=== PATIENT | female | born 1965 | race Caucasian/White ===

== ENCOUNTER → 2017-09-10 14:10 | Outpatient (POV) | payer OTHER, SELFPAY | PROVIDERS: Visit Provider Neurological Surgery | DX: Z00.00 Encounter for general adult medical examination without abnormal findings (principal) ==

== ENCOUNTER → 2017-10-07 08:45 | Outpatient (CLI) | payer OTHER, SELFPAY ==
--- NOTE | 2017-10-07 08:47 | MM_ITS ---
. MM Dig screening mamm BI w/CAD CAD Screening ORDERING PHYSICIAN : Luis Calvert MD PATIENT AGE: 52 years GENDER: Female COMPARISON: Previous mammograms: 14 August 2016, December 2014, February 2012 INDICATION: Routine screening. No hormones. No new complaints. Family history. Paternal aunt TECHNIQUE: Standard CC and MLO images were obtained. R2 CAD reviewed. FINDINGS: . No significant change since prior studies Moderately dense breast tissue which is localized to the central breast extending superiorly No new dominant mass nor suspicious calcification. RIGHT BREAST: LEFT BREAST:Stable small intramammary node lateral left breast IMPRESSION: ......... . Stable bilateral mammogram. No significant new findings. BI-RADS Category: 1 Negative RECOMMENDED FOLLOW-UP: 1YR - 1 YEAR FOLLOW-UP (A letter has been sent to the patient regarding results of the study.)
== END ==
PROVIDERS: PCP Internal Medicine Adolescent Medicine; Visit Provider Obstetrics & Gynecology
DX: Z12.31 Encounter for screening mammogram for malignant neoplasm of breast (principal)
CPT/HCPCS: 77067

== ENCOUNTER → 2017-10-16 07:29 | Outpatient (CLI) | payer OTHER, SELFPAY ==
[2017-10-16 08:16] LABS: Basophils # 0.1 K/mm3 (0-0.2); Basophils % 0.7 % (0.1-2.0); Eosinophils # 0.3 K/mm3 (0.0-0.4); Eosinophils % 3.8 % (0.1-12.0); Hematocrit 40.5 % (37.0-47.0); Hemoglobin 13.1 g/dL (12.2-16.2); Lymphocytes # 1.9 K/mm3 (0.7-4.5); Lymphocytes % 29.1 K/mm3 (10-50); Mean Corpuscular HGB Conc 32.2 g/dL (31.8-35.4); Mean Corpuscular Hemoglobin 29.7 pg (27.0-31.2); Mean Corpuscular Volume 92.1 fl (81-99); Mean Platelet Volume 7.6 fl (7.4-10.4); Monocytes # 0.4 K/mm3 (0.1-1.0); Neutrophils % 60.5 % (37.0-80.0); Platelet Count 295 K/mm3 (142-424); Red Cell Distribution Width 12.8 % (11.5-17.5); White Blood Count 6.7 K/mm3 (4.8-10.8)
[2017-10-18 02:33] LABS: EBV Ab VCA, IgG >600.0 U/mL (0.0-17.9); EBV Ab VCA, IgM <36.0 U/mL (0.0-35.9); Vitamin B12 248 pg/mL (232-1245); Vitamin D 25 Hydroxy 24.4 ng/mL (30.0-100.0)
[2017-10-22 08:02] LABS: CMV PCR Negative (Negative)
== END ==
PROVIDERS: Visit Provider Nurse Practitioner Family
DX: R53.83 Other fatigue (principal); R59.0 Localized enlarged lymph nodes
CPT/HCPCS: 36415; 82607; 82652; 85025; 86665; 87496

== ENCOUNTER → 2017-10-23 08:50 | Outpatient (CLI) | payer OTHER, SELFPAY ==
--- NOTE | 2017-10-23 08:53 | CT_ITS ---
CT soft tissue neck w con CLINICAL INDICATION: ITS.REASON: LYMPHADENOPATHY OF LT CERVICAL REGION ORDERING PHYSICIAN: Vick Fleming MD PATIENT AGE: 52 years COMPARISON: None TECHNIQUE:Axial, sagittal, and coronal images are generated and reviewed without contrast. All CT scans at the facility use one or more dose reduction, viz: automated exposure control; ma/kV adjustment per patient size (including targeted exams where dose is matched to indication; i.e. head); or iterative reconstruction technique. FINDINGS:There are scattered small nodes in the neck bilaterally. No dominant adenopathy is evident. There are small nodes in the left internal cervical chain measuring up to 1.4 x 1.1 cm. No mass abscess or abnormal collection. The nasopharynx, uvula, epiglottis, glottic region, and subglottic region have an unremarkable appearance. No thyroid mass. The submandibular glands and parotid glands are unremarkable. Lung apices are clear IMPRESSION: 1. Small shotty cervical lymph nodes 2. Otherwise negative CT neck with contrast
== END ==
PROVIDERS: PCP Internal Medicine Adolescent Medicine; Visit Provider Internal Medicine Adolescent Medicine
DX: R59.0 Localized enlarged lymph nodes (principal)
CPT/HCPCS: 70491; Q9967

== ENCOUNTER → 2017-12-29 11:24 | Outpatient (POV) | payer OTHER, SELFPAY | PROVIDERS: PCP Internal Medicine Adolescent Medicine; Visit Provider Otolaryngology | DX: Z00.00 Encounter for general adult medical examination without abnormal findings (principal) ==

== ENCOUNTER → 2018-01-05 15:04 | Outpatient (CLI) | payer OTHER, SELFPAY ==
--- NOTE | 2018-01-05 15:05 | CT_ITS ---
CT sinus wo con CLINICAL INDICATION: ITS.REASON: CHRONIC MAXILLARY SINUSITIS ORDERING PHYSICIAN: Alina Spangler MD PATIENT AGE: 52 years COMPARISON: None TECHNIQUE:Axial images obtained with sagittal and coronal reformats. All CT scans at the facility use one or more dose reduction, viz: automated exposure control, ma/kV adjustment per patient size (including targeted exams where dose is matched to indication, i.e. head), or iterative reconstruction technique. FINDINGS: There is mild mucosal thickening of the central left aspect of the sphenoid sinus and of the right maxillary sinus. No sinus air-fluid levels are evident. The left maxillary, ethmoid, and frontal sinuses are unremarkable. No mastoid effusion. The ostiomeatal complexes are patent. No significant nasal septal deviation. The orbits have an unremarkable appearance. The TMJs are unremarkable. IMPRESSION: 1. Minimal mucosal thickening of the right maxillary and left aspect of the sphenoid sinus suggesting mild inflammatory change. 2. No evidence of acute sinusitis.
== END ==
PROVIDERS: PCP Internal Medicine Adolescent Medicine; Visit Provider Otolaryngology
DX: J32.0 Chronic maxillary sinusitis (principal); R09.82 Postnasal drip
CPT/HCPCS: 70486

== ENCOUNTER → 2018-01-14 13:43 | Outpatient (POV) | payer OTHER, SELFPAY | PROVIDERS: Visit Provider Neurological Surgery | DX: Z00.00 Encounter for general adult medical examination without abnormal findings (principal) ==

== ENCOUNTER → 2018-01-26 11:25 | Outpatient (POV) | payer OTHER, SELFPAY | PROVIDERS: Visit Provider Otolaryngology | DX: Z00.00 Encounter for general adult medical examination without abnormal findings (principal) ==

== ENCOUNTER → 2018-02-02 12:58 | Outpatient (POV) | payer OTHER, SELFPAY | PROVIDERS: Visit Provider Dermatology | DX: Z00.00 Encounter for general adult medical examination without abnormal findings (principal) ==

== ENCOUNTER → 2018-03-11 14:44 | Outpatient (CLI) | payer OTHER, SELFPAY ==
--- NOTE | 2018-03-11 14:46 | US_ITS ---
MM Dig mamm DX unilat LT CAD, US breast LT complete INDICATION: Palpable left breast nodule ORDERING PHYSICIAN: Luis Calvert MD PATIENT AGE: 52 years COMPARISON: 10/07/2017, 08/13/2016 TECHNIQUE: Standard images performed along with spot compression views and left breast ultrasound FINDINGS: There is average fibroglandular tissue. A marker is placed along the 2:00 region of the left breast near the nipple to denote a palpable abnormality. No discrete mass is evident at the region of the placed marker. There is a benign-appearing nodule in the upper outer aspect of the left breast measuring 6 mm which is similar to the previous exams with a central lucency consistent with an intramammary lymph node. No malignant appearing mammographic mass or malignant microcalcification evident Left breast ultrasound: At 12:00 there is a 13 x 5 mm area of slight increased echogenicity somewhat irregular nature and could be due to a lipoma. Near 2:00 outer there is a 6 x 8 mm lobular area of decreased echogenicity. This is well-circumscribed and could correspond to the intramammary lymph node in a similar location on the mammogram. No ultrasound abnormality that corresponds to the palpable region. There is a small cyst at 3:00 at 5 mm. IMPRESSION: Probably benign findings. There is sonographic hypoechoic nodule at 2:00 measuring 7 mm which may correspond to the intramammary lymph node. No mammographic or sonographic abnormality to correspond to the palpable area of interest BI-RADS Category: 3 Probably Benign Finding Short Term Follow-up RECOMMENDED FOLLOW-UP: 6M - 6 MONTH FOLLOW-UP A negative mammogram and negative ultrasound does not exclude the possibility of malignancy. If there is indeed a palpable abnormality then, it should be managed on a clinical basis. Negative mammogram and negative ultrasound should not deter the possibility of biopsy in view of a palpable abnormality. (A letter has been sent to the patient regarding results of the study.)
== END ==
PROVIDERS: PCP Nurse Practitioner Family; Visit Provider Obstetrics & Gynecology
DX: N60.02 Solitary cyst of left breast (principal)
CPT/HCPCS: 76641; 77065

== ENCOUNTER → 2018-04-01 16:51 | Outpatient (CLI) | payer OTHER, SELFPAY | LOC: LAB 16:51 → LAB.DROPOF 04-02 10:01 | PROVIDERS: Visit Provider Urology | DX: N39.0 Urinary tract infection, site not specified (principal) | CPT/HCPCS: 87086; 87088; 87186 ==

== ENCOUNTER → 2018-10-13 13:39 | Outpatient (CLI) | payer OTHER, SELFPAY ==
--- NOTE | 2018-10-13 | US_ITS ---
MM Dig mamm BI DX w/CAD, US breast LT complete, US breast RT complete INDICATION: Follow-up abnormal mammogram, palpable abnormality at 12:00 near the nipple ORDERING PHYSICIAN: Luis Calvert MD PATIENT AGE: 53 years COMPARISON: 10/07/2017, 03/11/2018 TECHNIQUE: Bilateral diagnostic mammogram along with bilateral complete breast ultrasound FINDINGS: There is heterogeneous dense breast tissue bilaterally Right breast: No malignant appearing mass or malignant appearing microcalcifications. Vague nodular opacity is noted deep in the central aspect of the right breast which did appear to compress out on focal spot compression view. Right breast ultrasound: No abnormality noted in the palpable area of concern at 12:00. No cystic or solid lesions evident. Small nodes are present in the axilla. Left breast: Persistent nodular density in the outer aspect of left breast felt to represent a lymph node at 6 mm not significantly changed Left breast ultrasound: Lobulated 8 x 4 mm hypoechoic nodules present at 2:00 similar to the previous exam corresponding to the mammographic abnormality which has a benign appearance. No malignant appearing mass or malignant appearing microcalcifications. IMPRESSION: Benign findings. No convincing evidence of malignancy. Recommend resumes screening mammogram and left breast ultrasound February 2019 BI-RADS Category: 2 Benign Finding(s) RECOMMENDED FOLLOW-UP: 6M - 6 MONTH FOLLOW-UP (A letter has been sent to the patient regarding results of the study.)
== END ==
PROVIDERS: PCP Nurse Practitioner Family; Visit Provider Obstetrics & Gynecology
DX: Z12.31 Encounter for screening mammogram for malignant neoplasm of breast (principal); R92.8 Other abnormal and inconclusive findings on diagnostic imaging of breast
CPT/HCPCS: 76641; 77066

== ENCOUNTER → 2019-01-18 11:01 | Outpatient (CLI) | payer OTHER, SELFPAY ==
--- NOTE | 2019-01-18 11:04 | XR_ITS ---
PROCEDURE: XR SHOULDER RT MIN 2V CLINICAL INDICATION: right shoulder pain COMPARISON: No exams were available for comparison FINDINGS: Calcification is present along the right humeral head at the greater tuberosity region consistent with calcific tendonitis. No fracture or dislocation. No lytic or blastic change. IMPRESSION: Calcific tendonitis Dictated by: Shane Ivory MD 01/18/2019 11:22 Electronically signed by Shane Ivory MD in [place] 01/18/2019 11:22
== END ==
PROVIDERS: PCP Nurse Practitioner Family; Visit Provider Orthopaedic Surgery
DX: M25.511 Pain in right shoulder (principal)
CPT/HCPCS: 73030

== ENCOUNTER 2019-01-18 14:33 | Outpatient (RCR) | payer OTHER, SELFPAY | END 2019-01-18 14:50 | disposition home or self-care (01) | LOC: OT 14:33 | PROVIDERS: Visit Provider Orthopaedic Surgery | DX: G56.01 Carpal tunnel syndrome, right upper limb (principal) | CPT/HCPCS: 97763 ==

== ENCOUNTER → 2019-02-21 12:06 | Outpatient (POV) | payer OTHER, SELFPAY | PROVIDERS: Visit Provider Specialist | DX: G56.01 Carpal tunnel syndrome, right upper limb (principal); G56.21 Lesion of ulnar nerve, right upper limb | CPT/HCPCS: 95886; 95908 ==

== ENCOUNTER → 2019-02-25 13:10 | Outpatient (CLI) | payer OTHER, SELFPAY ==
--- NOTE | 2019-02-25 13:10 | XR_ITS ---
PROCEDURE: XR DEXA AXIAL SKELETON CLINICAL HISTORY: POSTMENOPAUSAL COMPARISON: No exams were available for comparison FINDINGS: L1-L4 density is 1.042 grams/centimeters squared with a T-score of -1.1. The lowest density in the hips is in the right femoral neck at 0.916 grams/centimeters sq with a T-score of -0.9 IMPRESSION: Osteopenia with moderate fracture risk. Treatment advised. Suggest follow-up exam January 2021 Dictated by: Shane Ivory MD 02/25/2019 14:14 Electronically signed by Shane Ivory MD in [place] 02/25/2019 14:14
== END ==
PROVIDERS: PCP Nurse Practitioner Family; Visit Provider Obstetrics & Gynecology
DX: Z78.0 Asymptomatic menopausal state (principal); Z13.820 Encounter for screening for osteoporosis
CPT/HCPCS: 77080

== ENCOUNTER 2019-03-04 10:30 | Outpatient (RCR) | payer OTHER, SELFPAY ==
--- NOTE | 2019-01-19 08:45 | HMH.OTOPEV ---
OT Inpatient Evaluation Rehab OT Outpatient Eval Start: 01/19/19 08:22 Freq: Status: Active Protocol: Document 01/19/19 08:22 RMARSHALL (Rec: 01/19/19 08:45 [facility] [id number] Electronically Signed By Jessi Mariano OT 01/19/19 08:22 Outpatient Therapy Subjective History Subjective History Pt is a 53 year old female with a history of psoriatic arthritis and cervical/lumbar spinal stenosis. Pt reports to therapy for initial evaluation to right shoulder. Pt explains her pain in the shoulder began ~6-12 months ago. She does not recall a specific injury causing her pain to begin. Pt has always had jobs requiring repetitive use of the upper extremities, which could have contributed to shoulder pain. Pt was given an injection in R shoulder on 01/18. Pt does demonstrate with decreased AROM and strength at right shoulder. Pt's pain is activity dependent. Pt will continue to be seen twice a week in order to address all deficits. Chief Complaint Pain,Stiff,Weakness Symptom Type Ache,Throb,Dull,Shooting Symptoms Relieved By Rest/Positioning Symptoms Aggravated By Physical Activity,Twisting, Lifting Prior Functional Limitations None Current Functional Limitations Reaching,Lifting,Housework, Dressing,Sleeping,Recreation Activity Symptom Description Intermittent,Activity Dependent Level of pain today (0-10) 4 Pain scale - at its best (0-10) 3 Pain scale - at its worst (0-10) 10 Shoulder/Elbow Eval Shoulder Objective Measurements Shoulder ROM Right Shoulder ROM Limitations Pain Shoulder Abduction Active Range of 100 degrees Motion (degrees) Shoulder Flexion Active Range of Motion 110 degrees (degrees) Query Text: Shoulder External Rotation Active Range 45 degrees of Motion (degrees) Shoulder Internal Rotation Active Range 20 degrees of Motion (degrees) pain with active ROM shoulder exam right standard
--- NOTE | 2019-03-01 16:04 | HMH.RHREAS ---
Rehab Reassessment Rehab OP Re-assessment Start: 03/01/19 15:54 Freq: Status: Active Protocol: Document 03/01/19 15:55 DAVID (Rec: 03/01/19 16:04 DAVID [id number]) Electronically Signed By Jessi Mariano OT 03/01/19 15:55 Rehab Re-assessment Subjective Subjective I do think I am better. Objective Objective Notes Pt continues to be seen twice a week in order to address all deficits at right shoulder. Pt engages in AROM/AAROM/ Strengthening exercises at right shoulder. Pt does receive modalities in order to decrease pain/inflammation. Assessment Progress Assessment Progressing as Expected Assessment Notes Pt reports she feels she is ~ 80% better since initial evaluation. Pt's constant pain has decreased to activity dependent, but she continues to have numbness. Pt is still unable to sleep on shoulder at night. Pt's AROM and strength has improved slightly . Current R Shoulder AROM Flex: 125 degrees Abd: 114 degrees ER: 80 degrees IR: 40 degrees Patient goals met No goals have been met at this time Goals Not Met Short term and shelter goals Revised Goals Continue progressing toward goals written on initial evaluation. Plan Plan Continue with OT plan of care Frequency of Therapy 2x's a week Duration of therapy 4 more weeks Time and Billing Re-Eval Time 15 Re-Eval Billing Units 1 PHYSICIAN CERTIFICATION: I certify the specified therapy services for Usha Roach are required, authorized, and reviewed every 30 days.
== END 2019-03-04 10:35 | disposition home or self-care (01) ==
LOC: OT 10:30
PROVIDERS: PCP Nurse Practitioner Family; Visit Provider Orthopaedic Surgery
DX: M75.31 Calcific tendinitis of right shoulder (principal); M25.511 Pain in right shoulder
CPT/HCPCS: 97014; 97033; 97110; 97164; 97166; G0283

== ENCOUNTER → 2019-04-05 12:20 | Outpatient (CLI) | payer OTHER, SELFPAY ==
--- NOTE | 2019-04-05 12:23 | XR_ITS ---
PROCEDURE: XR LUMBAR SPINE 2-3V CLINICAL INDICATION: low back pain COMPARISON: LS5 LUMBAR SPINE 5 VIEWS from 12/26/2014 FINDINGS: There is normal alignment. No fracture or dislocation. No lytic or blastic change. Minimal endplate hypertrophic changes are present at L3-L4 and with mild facet arthritic change at L4-5 and L5-S1. Neurostimulator device is present the left iliac approach with the tip overlying the right sacral region IMPRESSION: Mild degenerative changes. No acute finding with no significant change Dictated by: Shane Ivory MD 04/05/2019 16:23 Electronically signed by Shane Ivory MD in [place] 04/05/2019 16:23
--- NOTE | 2019-04-05 12:23 | XR_ITS ---
PROCEDURE: XR HIP LT 2-3V W/PELVIS CLINICAL INDICATION: left hip pain COMPARISON: BONE3 BONE DENSITOMETRY(HIP:LT SPINE from 01/05/2015 BONE3 BONE DENSITOMETRY(HIP:LT SPINE from 08/13/[id number] abdomen pelvis wo con from 12/30/2017 FINDINGS: No acute fracture or dislocation is evident. There is some cortical irregularity involving the inferior pubic ramus on the left and the junction of the superior pubic ramus with the ischium suggesting an old fracture. A neurostimulator device is present with the tip overlying the right sacral region. The hip joint has an unremarkable appearance on the left. IMPRESSION: 1. Negative left hip. 2. Old left superior and inferior pubic ramus fracture Dictated by: Shane Ivory MD 04/05/2019 16:19 Electronically signed by Shane Ivory MD in [facility] 04/05/2019 16:19
== END ==
PROVIDERS: PCP Internal Medicine Adolescent Medicine; Visit Provider Orthopaedic Surgery
DX: M25.552 Pain in left hip (principal); M54.5 Low back pain
CPT/HCPCS: 72100; 73502

== ENCOUNTER → 2019-04-14 07:26 | Outpatient (CLI) | payer OTHER, SELFPAY ==
--- NOTE | 2019-04-14 07:35 | XR_ITS ---
PROCEDURE: XR WRIST RT MIN 3V CLINICAL INDICATION: CTS Preop for carpal tunnel surgery, numbness and tingling 3rd 4th digits COMPARISON: No exams were available for comparison FINDINGS: The distal radius and ulna appear intact. The carpal bones appear normal. The pronator quadratus fat pad is well seen which is a normal finding. IMPRESSION: Unremarkable right wrist Dictated by: Dr. Janes Cutler MD 04/14/2019 08:[address] Janes Cutler MD in [facility] 04/14/2019 08:48
[2019-04-14 07:40] LABS: Basophils % 0.7 % (0.1-2.0); Eosinophils # 0.2 K/mm3 (0.0-0.4); Eosinophils % 3.6 % (0.1-12.0); Hematocrit 38.5 % (37.0-47.0); Hemoglobin 13.1 g/dL (12.2-16.2); Lymphocytes # 1.7 K/mm3 (0.7-4.5); Lymphocytes % 26.6 % (10-50); Mean Corpuscular HGB Conc 34.1 g/dL (31.8-35.4); Mean Corpuscular Hemoglobin 31.3 pg (27.0-31.2); Mean Corpuscular Volume 91.8 fl (81-99); Monocytes # 0.4 K/mm3 (0.1-1.0); Monocytes % 5.4 % (1.7-9.3); Neutrophils # 4.1 K/mm3 (1.8-7.8); Neutrophils % 63.8 % (37.0-80.0); Platelet Count 319 K/mm3 (142-424); Red Blood Count 4.19 M/mm3 (4.20-5.40); Red Cell Distribution Width 12.7 % (11.5-17.5); White Blood Count 6.4 K/mm3 (4.8-10.8)
[2019-04-14 08:22] LABS: Anion Gap 14.9 mEq/L (5-15); Blood Urea Nitrogen 15 mg/dL (7-18); Calcium 8.4 mg/dL (8.5-10.1); Carbon Dioxide 26 mmol/L (21.0-32.0); Chloride 105 mmol/L (98-107); Creatinine,Serum 0.98 mg/dL (0.55-1.02); Estimated Glomerular Filt Rate 59 ml/min (>60); GFR (African American) 72 ML/MIN (>60); Glucose 102 mg/dL (74-106); Potassium 3.9 mmoL/L (3.5-5.1); Sodium 142 mmol/L (136-145)
== END ==
PROVIDERS: Visit Provider Orthopaedic Surgery
DX: Z01.818 Encounter for other preprocedural examination (principal); G56.01 Carpal tunnel syndrome, right upper limb
CPT/HCPCS: 36415; 73110; 80048; 85025

== ENCOUNTER → 2019-07-05 07:48 | Outpatient (CLI) | payer SELFPAY ==
--- NOTE | 2019-07-05 07:52 | CT_ITS ---
PROCEDURE: CT HEART W CALCIUM SCORE CLINICAL HISTORY: SCREENING COMPARISON: No exams were available for comparison TECHNIQUE: Axial images obtained with sagittal and coronal reformats. All CT scans at the facility use one or more dose reduction, viz: automated exposure control, ma/kV adjustment per patient size (including targeted exams where dose is matched to indication, i.e. head), or iterative reconstruction technique. FINDINGS: Coronary artery calcium score is 4 indicating minimal plaque burden with low cardiovascular disease risk. No pertinent incidental findings. IMPRESSION: Minimal plaque burden with low cardiovascular disease risk Dictated by: Shane Ivory MD 07/05/2019 10:58 Electronically signed by Shane Ivory MD in [facility] 07/05/2019 10:58
== END ==
PROVIDERS: PCP Nurse Practitioner Family; Visit Provider Internal Medicine Cardiovascular Disease
DX: Z13.6 Encounter for screening for cardiovascular disorders (principal)
CPT/HCPCS: 75571

== ENCOUNTER → 2019-11-28 12:53 | Outpatient (CLI) | payer OTHER, SELFPAY ==
[2019-11-29 14:15] LABS: Covid-19 Nasal PCR Sendout Lex Not Detected
== END ==
PROVIDERS: Visit Provider Internal Medicine Adolescent Medicine
DX: Z20.828 Contact with and (suspected) exposure to other viral communicable diseases (principal)
CPT/HCPCS: U0004

== ENCOUNTER → 2020-01-05 09:07 | Outpatient (CLI) | payer OTHER, SELFPAY ==
--- NOTE | 2020-01-05 09:13 | XR_ITS ---
PROCEDURE: XR LUMBAR SPINE MIN 4V CLINICAL INDICATION: LOW BACK PAIN COMPARISON: CR XR LUMBAR SPINE 2-3V from 04/05/2019 FINDINGS: Alignment. No fracture or dislocation evident. Small anterior osteophytes are present at L3-L4. Mild facet arthritic changes are present at L5-S1. There is a neurostimulator device in the presacral region on the right. IMPRESSION: Mild degenerative changes Dictated by: Shane Ivory MD 01/05/2020 16:19 Shane Ivory MD in [facility] 01/05/2020 16:19
== END ==
PROVIDERS: PCP Nurse Practitioner Family; Visit Provider Nurse Practitioner Family
DX: M54.41 Lumbago with sciatica, right side (principal)
CPT/HCPCS: 72110

== ENCOUNTER 2020-01-18 11:07 | Outpatient (RCR) | payer OTHER, SELFPAY ==
--- NOTE | 2020-01-18 11:34 | HMH.PTOPEV ---
PT Outpatient Evaluation Rehab PT Outpatient Evaluation Start: 01/18/20 11:27 Freq: Status: Active Protocol: Document 01/18/20 11:27 DONITA (Rec: 01/18/20 11:34 DONITA [id number]) Electronically Signed By Jose Sears, PT 01/18/20 11:27 Outpatient Therapy Subjective History Subjective History Pt reports insidious onset LBP beginning ~1 month ago. Pt reports pain has progressedw/ RLE radicular s/s, then with LLE s/s. Pt reports R hip/glut /hs/calf pain, LLE hip/groin/ calf area pain. PMH: R L4-5 microdiscectomy . Chief Complaint Pain,Stiff,Paresthesia Symptom Type Ache,Sharp,Dull Symptoms Relieved By Rest/Positioning,Heat Symptoms Aggravated By Sitting,Walking,Lifting Prior Functional Limitations Lifting,Housework Current Functional Limitations Lifting,Housework,Sitting, Walking,Bending/Stooping Symptom Description Constant but Variable Level of pain today (0-10) 5 Pain scale - at its best (0-10) 4 Pain scale - at its worst (0-10) 7 Lumbopelvic Eval Posture Thoracic Spine Posture Standing Position Flattened Lumbar Spine Posture Standing Position Flattened Assistive device Assistive Devices None / NA Gait Observation General Gait Pattern Observation Antalgic Gait Palapation tenderness bilateral lumbar spinal tenderness Yes: 3/4 paraspinal tenderness Yes: 3/4 buttock tenderness Yes: 3/4 Lumbar/Sacral Palpation Findings Tenderness,Trigger Point, Muscle Guarding Accessory Movement L-spine Vertebrae Accessory Movements Central P/A [place] that Elicit Symptoms L2 bilateral L3 bilateral L4 bilateral L5 bilateral Range of Motion Lumbar Spine Active Flexion Range of 0-40 Motion (degrees) Lumbar Spine Active Extension Range of 0-10 Motion (degrees) Left Lumbar Spine Lateral Flexion Active 0-30 Range of Motion (degrees) Right Lumbar Spine Lateral Flexion 0-30 Active Range of Motion (degrees) Lumbar Spine ROM Limitations Pain Manual Muscle Test Bilateral Knee Extension Strength Grade 4 Good Knee Flexion Strength Grade 4 Good Hip Flexion Strength Grade 4- Good- Hip External Rotation Strength Grade 4- Good- Hip Internal Rotation Strength Grade 4- Good- Extensor Hallucis Longus Strength Grade 5 Normal Ankle Dorsiflexion Strength Grade 5 Normal Gastronemius/Soleus Strength Grade 5 Normal DTR Rt Patellar
== END 2020-01-18 11:54 | disposition home or self-care (01) ==
LOC: PT 11:07
PROVIDERS: Visit Provider Nurse Practitioner Family
DX: M54.41 Lumbago with sciatica, right side (principal)
CPT/HCPCS: 97163

== ENCOUNTER → 2020-01-24 12:52 | Outpatient (CLI) | payer OTHER, SELFPAY ==
--- NOTE | 2020-01-24 12:59 | IR_ITS ---
PROCEDURE: IR MYELOGRAM SPINE LUMBOSACRAL CT myelogram CLINICAL HISTORY: RT SIDED LOW BACK PAIN W/SCIATICA Prior lumbar surgery. Bladder stimulator device is in place COMPARISON: CT CT LUMBAR SPINE W CON from 01/24/2020 TECHNIQUE: The patient is not compatible for MRI due to bladder stimulator device. Following obtaining informed consent and time-out procedure under fluoroscopic guidance with local anesthesia with 1 percent buffered lidocaine, 22 gauge spinal needle was inserted into the L3-L4 interspace. Approximately 12 mL of Isovue 200 M was injected and images obtained. The patient tolerated the procedure well without evidence of immediate complications. Following this the patient was taken to the CT suite where CT myelogram was performed. Patient was then taken to outpatient observation with no immediate complications apparent. Axial images obtained with sagittal and coronal reformats. All CT scans at the facility use one or more dose reduction, viz: automated exposure control, ma/kV adjustment per patient size (including targeted exams where dose is matched to indication, i.e. head), or iterative reconstruction technique. FINDINGS: Myelogram: The contrast flowed freely into the dural space. There is no evidence of blockage of flow of CSF. No large extradural filling defects were evident. There was some minimal narrowing of the thecal sac with some impingement upon the thecal sac bilaterally at the L4-5 level. The cauda equina has an unremarkable appearance. CT myelogram: The spinal cord ends at the L2 level. The cauda equina has an unremarkable appearance. T11-T12: Unremarkable. T12-L1: Unremarkable. L1-L2: Unremarkable. L2-L3: Unremarkable. L3-L4: There is a concentric bulging disc at L3-L4. This is more prominent on the left with some minimal broad based left foraminal and lateral disc protrusion. This is causing some mild left-sided foraminal narrowing abutting the anterior aspect of the left L4 nerve root without significant displacement. L4-5: Postsurgical changes with prior right-sided laminectomy with minimal protrusion of the thecal sac into the laminectomy site without nerve root involvement.. There is mild concentric bulging disc at this level. No disc herniation or canal stenosis. L5-S1: Minimal bulging disc. Incidental note is made of a small hypodensity of the right kidney anteriorly at 8 mm possibly due to small cyst. No evidence of arachnoiditis. IMPRESSION: 1. L3-L4: There is a concentric bulging disc at L3-L4. This is more prominent on the left with some minimal broad based left foraminal and lateral disc protrusion. This is causing some mild left-sided foraminal narrowing abutting the anterior aspect of the left L4 nerve root without significant displacement. 2. L4-5: Postsurgical changes with prior right-sided laminectomy with minimal protrusion of the thecal sac into the laminectomy site without nerve root involvement.. There is mild concentric bulging disc at this level. No disc herniation or canal stenosis. 3. L5-S1: Minimal bulging disc. 4. No evidence of extruded herniated disc or canal stenosis Dictated by: Shane Ivory MD 01/25/2020 08:44 Shane Ivory MD in [place] 01/25/2020 08:44
== END ==
PROVIDERS: PCP Nurse Practitioner Family; Visit Provider Internal Medicine Adolescent Medicine
DX: M54.41 Lumbago with sciatica, right side (principal)
CPT/HCPCS: 62304; 72132; Q9966

== ENCOUNTER → 2020-08-23 09:04 | Outpatient (CLI) | payer OTHER, SELFPAY ==
[2020-08-23 10:11] LABS: Alanine Aminotransferase 17 U/L (12-78); Albumin Level 4.4 g/dl (3.5-5.0); Albumin/Globulin Ratio 1.5 (1.1-1.8); Alkaline Phosphatase 81 U/L (38-126); Anion Gap 11.1 mEq/L (5-15); Aspartate Amino Transferase 21 U/L (14-36); Bilirubin,Total 0.3 mg/dl (0.2-1.3); Blood Urea Nitrogen 18 mg/dl (7-17); Calcium 9.3 mg/dl (8.4-10.2); Carbon Dioxide 24 mmol/L (22.0-30.0); Chloride 109 mmol/L (98-107); Estimated Glomerular Filt Rate 74 ml/min (>60); GFR (African American) 90 ML/MIN (>60); Globulin 2.9 g/dL (1.3-3.2); Glucose 91 mg/dl (74-100); HDL Cholesterol 75 mg/dl (40-60); Potassium 4.1 mmoL/L (3.5-5.1); Sodium 140 mmol/L (136-145); Total Protein,Serum 7.3 g/dl (6.3-8.2); Triglycerides 75 mg/dl (30-150); VLDL Cholesterol 15 mg/dL (0-40)
[2020-08-23 10:22] LABS: Direct LDL Cholesterol 196.33 mg/dL (100-129)
[2020-08-23 10:23] LABS: Chol/HDL Ratio 4.6 (1-3.5); Cholesterol 348 mg/dl (140-200)
[2020-08-23 10:28] LABS: 25-OH Vitamin D, Total 22.7 ng/mL (30-100)
[2020-08-23 10:41] LABS: Thyroid Stimulating Hormone 2.68 uIU/mL (0.465-4.68)
[2020-08-23 10:59] LABS: Vitamin B12 201 pg/mL (239-931)
== END ==
PROVIDERS: Visit Provider Nurse Practitioner Family
DX: E78.00 Pure hypercholesterolemia, unspecified (principal); E03.9 Hypothyroidism, unspecified; E53.8 Deficiency of other specified B group vitamins; E55.9 Vitamin D deficiency, unspecified
CPT/HCPCS: 36415; 80053; 80061; 82306; 82607; 84443

== ENCOUNTER → 2020-08-29 07:51 | Outpatient (CLI) | payer OTHER, SELFPAY ==
--- NOTE | 2020-08-29 08:08 | MM_ITS ---
PROCEDURE INFORMATION: Exam: MG Screening 3D Mammography Exam date and time: 08/29/2020 8:08 AM Age: 55 years old Clinical indication: Encounter for screening mammogram for malignant neoplasm of breast TECHNIQUE: Imaging protocol: Screening tomosynthesis and 2D mammography including computer-aided detection (CAD) when performed. COMPARISON: 1. MG DIG MAMM-DX OMER 10/13/2018 2:06 PM 2. MG DXLT MM Dig mamm DX unilat LT CAD 03/11/2018 3:34 PM FINDINGS: MAMMOGRAPHY: Breast composition: The breast tissue is heterogeneously dense, which may obscure small masses. Mass: None. Architectural distortion: None. Calcifications: No suspicious calcifications. Asymmetric density: None. Skin thickening: None. Axillary adenopathy: None. IMPRESSION: No mammographic evidence of malignancy. Annual screening is recommended unless otherwise clinically indicated. ASSESSMENT: BI-RADS Category 1: Negative
--- NOTE | 2020-08-29 08:09 | US_ITS ---
PROCEDURE: US ABDOMEN LIMITED CLINICAL INDICATION: RUQ TENDERNESS COMPARISON: No exams were available for comparison FINDINGS: PANCREAS: Unremarkable. No obvious mass or abnormal fluid collection. No ductal dilatation LIVER: No focal liver lesions demonstrated. Homogeneous echogenicity. No intrahepatic biliary ductal dilatation evident. There is appropriate direction of blood flow within a non dilated portal vein. There is mild fatty liver. RIGHT KIDNEY: Unremarkable. Normal size and echogenicity. No hydronephrosis GALLBLADDER: No gallstones, gallbladder wall thickening, pericholecystic fluid, or biliary dilatation. IMPRESSION: Mild fatty liver otherwise unremarkable limited abdominal ultrasound as detailed above disc Dictated by: Shane Ivory MD 08/29/2020 14:16 Shane Ivory MD in [place] 08/29/2020 14:16
== END ==
PROVIDERS: PCP Nurse Practitioner Family; Visit Provider Nurse Practitioner Family
DX: Z12.31 Encounter for screening mammogram for malignant neoplasm of breast (principal); R10.811 Right upper quadrant abdominal tenderness
CPT/HCPCS: 76705; 77063; 77067

== ENCOUNTER → 2020-11-29 09:46 | Outpatient (CLI) | payer OTHER, SELFPAY ==
[2020-11-29 09:49] LABS: MANUAL DIFFERENTIAL MANUAL DIFFERENTIAL (MANUAL DIFF)
[2020-11-29 10:27] LABS: Basophils # 0.1 K/mm3 (0-0.2); Basophils % 1.1 % (0.1-2.0); Eosinophils # 0.3 K/mm3 (0.0-0.4); Eosinophils % 4.8 % (0.1-12.0); Hematocrit 36.5 % (37.0-47.0); Hemoglobin 11.6 g/dL (12.2-16.2); Lymphocytes # 1.9 K/mm3 (0.7-4.5); Lymphocytes % 28.5 % (10-50); Mean Corpuscular HGB Conc 31.8 g/dL (31.8-35.4); Mean Corpuscular Hemoglobin 30.3 pg (27.0-31.2); Mean Corpuscular Volume 95.5 fl (81-99); Mean Platelet Volume 7.3 fl (7.4-10.4); Monocytes # 0.4 K/mm3 (0.1-1.0); Monocytes % 6.4 % (1.7-9.3); Neutrophils % 59.1 % (37.0-80.0); Platelet Count 293 K/mm3 (142-424); Red Blood Count 3.82 M/mm3 (4.20-5.40); White Blood Count 6.8 K/mm3 (4.8-10.8)
[2020-11-29 10:47] LABS: Chloride 105 mmol/L (98-107); Potassium 4.4 mmoL/L (3.5-5.1); Sodium 142 mmol/L (136-145)
[2020-11-29 10:50] LABS: Anion Gap 12.4 mEq/L (5-15); Blood Urea Nitrogen 18 mg/dl (7-17); Carbon Dioxide 29 mmol/L (22.0-30.0); Estimated Glomerular Filt Rate 65 ml/min (>60); GFR (African American) 79 ML/MIN (>60)
[2020-11-29 10:51] LABS: Calcium 9.1 mg/dl (8.4-10.2); Glucose 90 mg/dl (74-100)
[2020-11-29 10:52] LABS: Eosinophils % 5 % (0-3); Lymphocytes % 29 % (10-50); Monocytes % 10 % (2-9); Neutrophils % 56 % (42-76); Platelet Estimate Normal; RBC Morphology Normal; Total Cells Counted 100
== END ==
PROVIDERS: Visit Provider Urology
DX: Z01.812 Encounter for preprocedural laboratory examination (principal); Z11.52 Encounter for screening for COVID-19; R32 Unspecified urinary incontinence; N31.2 Flaccid neuropathic bladder, not elsewhere classified
CPT/HCPCS: 36415; 80048; 85007; 85014; 85018; 85048; 85049; U0003

== ENCOUNTER 2020-11-30 08:13 | Day surgery (SDC) | payer OTHER, SELFPAY ==
[2020-11-27 08:52] VITALS: BMI 25.7
[2020-11-30] VITALS (9 sets, daily range): BP systolic 89–130; BP diastolic 51–91; PULSE 68–111; RESP 16–20; TEMP 36.3–36.6; O2SAT 91–99
--- NOTE | 2020-11-30 08:37 | HMH.ANESCL ---
[facility] Anesthesia Checklist - Patient Identification Patient Identification: Arm Band - Structural Data Admitted From: Home Planned Operative Procedure/s: Interstim placement Consent for Planned Operative Procedure(s) Verified: Yes - NPO Status Verified Time NPO: 00:00 - Additional verifications Anesthesia Reactions: No Hx Blood Transfusions: Yes Blood Transfusion Reaction: No - Airway Assessment C-Spine Mobility Assessed: Yes TMJ Mobility Assessed: Yes Dentition: Good Dentition - Neurological Assessment Level of Consciousness: Awake Hx Seizures: No Numbness or tingling in extremities: No - Anesthesia Plan Anesthesia Risk discussed: Yes Anesthesia Plan: Verified ASA Class: II Anesthesia Type: Local & MAC [facility] History I have reviewed the patient's past medical history: Yes Medical History: Reports:: Gastroesophageal Reflux Disease(GERD), Hyperlipidemia, Ulcer Denies:: Cancer, Diabetes Mellitus Type 1, Diabetes Mellitus Type 2, Internal Pacemaker, MRSA, Seizures *Have you ever received a pneumonia vaccine?: No *Have you received a flu vaccine this season?: Yes Other Medical History: Reports: Arthritis, Other. Denies: Blood Transfusion Reaction Anesthesia experience/problems:: PONV Laterality Cases: Right: Carpal Tunnel Release, Bilateral: Other Other Surgeries: Yes: No Previous Surgery, Appendectomy, Colonoscopy, Dilation and Curettage, EGD, Hysterectomy-Total, Other. No: Pacemaker Amputation: No Fractures: Yes - *Social History Last grade of school completed: Some college Smoking Status: Never smoker Alcohol Intake: never Alcohol Intake Frequency:: holidays/special occasions only Substance Use Type: denies use *Occupational Status:: employed Housing: house Household Members: spouse *Travel in the last 8 weeks: None Family Hx:: Hypertension
--- NOTE | 2020-11-30 10:13 | XR_ITS ---
PROCEDURE: XR PELVIS 1-2V CLINICAL INDICATION: INTERSTIM REMOVAL AND REPLACEMENT COMPARISON: CR XR LUMBAR SPINE MIN 4V from 01/05/2020 FINDINGS: Fluoroscopy time: 1.16 minutes. A presacral stimulation device was placed during the procedure with 2 images showing the device overlying the right pelvic area in the presacral region. IMPRESSION: Stimulator device replaced with fluoroscopic guidance Dictated by: Shane Ivory MD 11/30/2020 13:14 Shane Ivory MD in [place] 11/30/2020 13:14
--- NOTE | 2020-11-30 11:11 | HMH.OPNOTE ---
Date of procedure: 11/30/20 Pre-op Diagnosis:: History of hypotonic bladder Post-op Diagnosis:: History of hypotonic bladder Procedure performed:: Removal of InterStim device and replacement with the InterStim 2 MRI compatible InterStim device Surgeon:: Marin Hutchins MD PALEOLOGIST:: Gisela Serrano Anesthesia: MAC Estimated blood loss (mL): 5 Clinical Note:: 55-year-old white female with history of hypotonic bladder status post InterStim device with good results however she has some chronic back pain and is requiring MRI for evaluation and she cannot get an MRI with her current device. She would like to change control specialist to the MRI compatible InterStim 2 device. Operative findings:: The old device was removed without complication and the new lead and battery replaced. Operative note:: Patient was taken to the operating room after informed consent was obtained. Monitored anesthesia care was administered and she was placed into the prone position. Patient was prepped and draped in the standard surgical fashion. Local anesthetic was placed into the area of the old battery placement site. The pocket incision was opened using a scalpel on the skin and blunt dissection for the underlying tissue. The battery and lead were identified. The battery was removed from the incision and removed. The battery was tested and good avel and toe movement was ensured. The battery was discarded and by pulling on the lead we could see L puckering of the skin in the midline and local anesthetic was placed over that site incision was made. The lead was identified and grasped and retracted from the pocket site but the wire did break in applying the pressure. We dissected down to the bone side and the lead was identified and removed intact. The introducer and pocket sites were then irrigated with antibiotic solution. Attention was then turned to replacement. Pillows had been placed into the lower abdomen to flatten the sacrum and under the shins to allow the toes to dangle freely. C arm was moved into the AP position and the medial edges of the foramen were identified and marked. C arm was then moved into the lateral position to identify the S3 foramen. A 3-1/2 inch foramen needle was then placed into the superior medial aspect of the S3 foramen and appropriate needle depth was visualized utilizing fluoroscopy. Proper S3 needle location was confirmed by direct observation of the lifting of the perineum and plantar flexion of the great toe utilizing the test stimulation cable. The foramen needle stylette was removed and a directional guide was placed through the needle using markers on the guide to assure appropriate depth. The foramen needle was removed by sliding over the directional guide. A small incision was made peripherally to the directional guide through the skin. The lead introducer with dilator was placed over the directional guide and utilizing fluoroscopic guidance the lead introducer was advanced until the radiopaque marker was retirement through the foramen. The dilator was removed along with the directional guide. Using fluoroscopy the tined lead with a bent tip stylette was placed through the introducer until electrodes 2 and 3 straddled the anterior surface of the sacrum. All 4 electrodes were then tested observing avel and plantar flexion of the great toe on each lead. After satisfactory lead positioning was confirmed the introducer was retracted over the lead under fluoroscopy deploying the tines into the presacral tissue. Retesting of all 4 electrodes confirmed appropriate responses. The a tunneling tool with sheath was then placed from the lead insertion site subcutaneously to the incised pocket site. The tunneling tool was removed and the lead was fed through the sheath exiting at the pocket site. The sheath was removed and the lead was cleaned and dried. The lead was inserted into the header of the InterStim to neurostimulator and the single se
--- NOTE | 2020-11-30 12:54 | SUR.OPER ---
0925 insterstim explanted with SN: [id number]
== END 2020-11-30 12:35 | disposition home or self-care (01) ==
PROVIDERS: PCP Nurse Practitioner Family; Visit Provider Urology
PROC: (CPT 64590; principal; 2020-11-30 09:00)
DX: N31.2 Flaccid neuropathic bladder, not elsewhere classified (principal); E78.5 Hyperlipidemia, unspecified; K21.9 Gastro-esophageal reflux disease without esophagitis; Z87.39 Personal history of other diseases of the musculoskeletal system and connective tissue; M19.90 Unspecified osteoarthritis, unspecified site; Z82.49 Family history of ischemic heart disease and other diseases of the circulatory system; Z79.899 Other long term (current) drug therapy
CPT/HCPCS: 64590; 64581; 72170; 76000; 96374; C1767; C1778; J2405

== ENCOUNTER → 2021-01-15 08:52 | Outpatient (POV) | payer OTHER, SELFPAY ==
[2021-01-15 09:28] VITALS: BP 137/91; PULSE 91; RESP 18; O2SAT 97; BMI 25.7
--- NOTE | 2021-01-15 14:10 | HMH.PMCON ---
Assessment and Plan (1) Bilateral sacroiliitis Status: Chronic Category: Medical Code(s): M46.1 - Sacroiliitis, not elsewhere classified (2) Low back pain Status: Chronic Category: Medical Code(s): M54.5 - Low back pain (3) Mid back pain Status: Chronic Category: Medical Code(s): M54.9 - Dorsalgia, unspecified (4) Neck pain Status: Chronic Category: Medical Code(s): M54.2 - Cervicalgia - Assessment and plan all Dx Assessment and Plan for all problems:: Patient is a 55-year-old white female who was referred by Dr. Ohara. She did undergo a CT myelogram with Dr. Ohara, however, there was difficulty assessing whether the patient had true neural impingement or epidural fibrosis causing her symptoms. She does have a bladder stimulator that has since been changed out to an MRI compatible stimulator. She is scheduled for an MRI this upcoming week to determine if pathology correlates with her symptoms. The patient does have a positive Yunior's, compression, distraction test along with a positive Giacomo's test today. We discussed undergoing bilateral SI joint injections. Patient is in agreement. She has undergone physical therapy for greater than 6 weeks and continues with home stretching. She has taken ibuprofen in the past, but reports a history of ulcers. As result she is no longer taking anti-inflammatories. She is currently managed with [place] as well as acetaminophen with codeine and with gabapentin. The patient does not get significant relief with these medications. The patient and I discussed that she may be a corner lock candidate, however, the patient is very interested in intrathecal therapy due to mid back and neck pain. Patient has requested further information regarding intrathecal therapy. We will be happy to give her information regarding the pump, however, if the patient lacks pathology per MRI report, SI injections versus corner lock may be a better option for her. We will see her back after her bilateral SI joint injections and will also discuss her MRI results following her SI injections and further plan of care at that time. Possible side effects of corticosteroids have been discussed with the patient. Risks and benefits of the procedure have been explained to the patient. Patient would like to proceed with the procedure. Patient has been instructed to contact the clinic with any concerns before the next appointment. Dr. Rainey has reviewed this note and agrees with this plan of care. This note was dictated using voice recognition software and make contain errors or omissions. HPI - Data of Consult Patient: new to practice Consult date: 01/15/21 Requesting Physician: Lona Marin APRN - Consult Narrative Reason for consult: Low back pain History of present illness: Ms. Roach is a 55 year old female who presents today for consultation for low back pain with radiation into bilateral hips and legs. Patient says that she has had pain to these areas for over a year. She was referred to us by Dr. Juan Diego Ohara. Patient says that her pain is worse with standing and walking but does improve with sitting. She does continue to have pain with sitting, however, with less intensity. She is having pain into her bilateral buttock and thighs. She is complaining of right foot numbness. Patient says that she has neck pain right shoulder pain and mid back pain as well. She has taken tramadol and ibuprofen with no long-term benefits. She says that prolonged walking causes the most significant pain. Patient has had bilateral SI joint injections which gave her a couple of weeks of relief. She has had a myelogram with Dr. Ohara, however, due to a bladder stimulator was limited in the view. Since then, the patient has had her bladder stimulator changed out to a device that is MRI compatible. The patient is scheduled for an MRI of her lumbar spine this upcoming week. Patient has had lumbar epidural steroid injectio
== END ==
PROVIDERS: Visit Provider Clinical Nurse Specialist Family Health
DX: M46.1 Sacroiliitis, not elsewhere classified (principal); M54.5 Low back pain; M54.2 Cervicalgia
CPT/HCPCS: 99202; G0463

== ENCOUNTER 2021-01-25 09:45 | Day surgery (SDC) | payer OTHER, SELFPAY ==
[2021-01-25 09:47] VITALS: BP 121/91; PULSE 82; RESP 18; TEMP 36.6; O2SAT 99; BMI 25.7
[2021-01-25 10:44] VITALS: BP 130/91; PULSE 86; RESP 18; O2SAT 98
[2021-01-25 10:45] VITALS: BP 153/99; PULSE 82; RESP 18; O2SAT 98
--- NOTE | 2021-01-25 10:55 | P.PCN_ITS ---
- Procedure Date: 01/25/21 Time: 10:55 Anesthesiologist:: Bg Rainey MD Complications:: None Pre-procedure Diagnosis:: Sacroiliitis Post-procedure Diagnosis:: Same Indications for Procedure:: Patient is a pleasant 55-year-old white female who we have been treating for low back pain and bilateral hip pain. She has gotten good benefit from SI joint injections she is 80 to 90% better for several weeks. This is not lasting very long pain is returned we will do repeat bilateral SI joint injections today. She is also getting a new MRI and following up with Dr. Ohara concerning her keo k. He did suggest repeat surgery. Procedure Details:: B/L SI joint injection under fluoroscopy Informed consent was obtained and the risks and benefits of the procedure was explained to the patient. The patient was taken to the procedure room and placed prone on the procedure table. The patient was prepped using ChloraPrep. The skin and subcutaneous tissues overlying the SI joints were anesthetized using lidocaine. I placed a 22-gauge needle first in the left SI joint and second in the right SI joint. Needle placement was confirmed with dye. After this we injected 5 mL bupivacaine 0.25% and Depo-Medrol 40 mg into each SI joint. Patient tolerated the procedure well with no complication. Plan and Disposition:: We will follow-up with her in 2 weeks. Will reevaluate symptoms at that time. She is to follow-up with Dr. Ohara after her MRI. My suggestion was to let him proceed with surgery if he feels that this is appropriate to her back. In the meantime we will seek approval for right SI joint stabilization to help with her pain.
[2021-01-25 10:57] VITALS: BP 134/95; PULSE 84; RESP 18; TEMP 37.1; O2SAT 98
[2021-01-25 11:43] LABS: Basophils # 0.1 K/mm3 (0-0.2); Basophils % 0.8 % (0.1-2.0); Eosinophils # 0.2 K/mm3 (0.0-0.4); Eosinophils % 2.9 % (0.1-12.0); Hematocrit 41.1 % (37.0-47.0); Hemoglobin 13.9 g/dL (12.2-16.2); Lymphocytes # 1.7 K/mm3 (0.7-4.5); Mean Corpuscular HGB Conc 33.8 g/dL (31.8-35.4); Mean Corpuscular Hemoglobin 32.4 pg (27.0-31.2); Mean Corpuscular Volume 95.8 fl (81-99); Mean Platelet Volume 7.6 fl (7.4-10.4); Monocytes # 0.4 K/mm3 (0.1-1.0); Monocytes % 5.1 % (1.7-9.3); Neutrophils # 5.1 K/mm3 (1.8-7.8); Neutrophils % 68.2 % (37.0-80.0); Platelet Count 338 K/mm3 (142-424); Red Blood Count 4.29 M/mm3 (4.20-5.40); Red Cell Distribution Width 12.2 % (11.5-17.5); White Blood Count 7.5 K/mm3 (4.8-10.8)
[2021-01-25 12:53] LABS: Alanine Aminotransferase 34 U/L (12-78); Albumin Level 4.7 g/dl (3.5-5.0); Albumin/Globulin Ratio 1.4 (1.1-1.8); Alkaline Phosphatase 91 U/L (38-126); Anion Gap 12.7 mEq/L (5-15); Aspartate Amino Transferase 39 U/L (14-36); Bilirubin,Total 0.4 mg/dl (0.2-1.3); Blood Urea Nitrogen 10 mg/dl (7-17); Carbon Dioxide 28 mmol/L (22.0-30.0); Chloride 105 mmol/L (98-107); Chol/HDL Ratio 4.4 (1-3.5); Cholesterol 211 mg/dl (140-200); Creatinine Clearance Estimated 98 mL/min (50-200); Estimated Glomerular Filt Rate 87 ml/min (>60); GFR (African American) 105 ML/MIN (>60); Globulin 3.4 g/dL (1.3-3.2); Glucose 100 mg/dl (74-100); HDL Cholesterol 48 mg/dl (40-60); Potassium 4.7 mmoL/L (3.5-5.1); Sodium 141 mmol/L (136-145); Total Protein,Serum 8.1 g/dl (6.3-8.2); Triglycerides 168 mg/dl (30-150); VLDL Cholesterol 34 mg/dL (0-40)
[2021-01-25 13:03] LABS: Direct LDL Cholesterol 118.09 mg/dL (100-129)
[2021-01-25 13:09] LABS: 25-OH Vitamin D, Total 40.4 ng/mL (30-100)
[2021-01-25 13:24] LABS: Thyroid Stimulating Hormone 1.97 uIU/mL (0.465-4.68)
[2021-01-25 13:42] LABS: Vitamin B12 926 pg/mL (239-931)
== END 2021-01-25 11:00 | disposition home or self-care (01) ==
LOC: SC.PAINP 09:46
PROVIDERS: PCP Nurse Practitioner Family; Visit Provider Anesthesiology
DX: M46.1 Sacroiliitis, not elsewhere classified (principal); E78.5 Hyperlipidemia, unspecified; K21.9 Gastro-esophageal reflux disease without esophagitis; F41.9 Anxiety disorder, unspecified; F32.9 Major depressive disorder, single episode, unspecified; Z87.448 Personal history of other diseases of urinary system; Z79.899 Other long term (current) drug therapy
CPT/HCPCS: 27096; 36415; 80053; 80061; 82306; 82607; 84443; 85025; G0260; J1040; Q9966

== ENCOUNTER → 2021-02-14 13:55 | Outpatient (POV) | payer OTHER, SELFPAY ==
[2021-02-14 14:01] VITALS: BP 139/94; PULSE 90; RESP 18; O2SAT 98; BMI 25.7
--- NOTE | 2021-02-14 15:24 | HMH.PAINSOAP ---
[facility] Pain Management SOAP Note Subjective:: Patient is a 55-year-old white female who presents today for follow-up after bilateral SI joint injections and to discuss plan of care.. The patient had the injection on 01/25/2021. She reports that she got 2 weeks of relief at about 80%. She does rate her pain a 5 out of 10 today. We did schedule the patient for core lock procedure. Patient does undergo injective therapy routinely but continues to have significant pain. Unfortunately she only gets short-term relief with her injections. The patient has tried and failed conservative therapies, which include physical therapy for more than 6 weeks, continued home stretching, anti-inflammatories, as well as ice and heat therapies. The patient did follow-up with Dr. Ohara. Dr. Ohara did inform the patient that corner lock was not likely a good option for the patient after reviewing a new updated MRI for the patient. He did obtain a lumbar MRI and did discuss with the patient worsening symptoms with narrowing and bulging disks. Patient was informed that she will likely need a stimulator versus intrathecal pump. Patient does have a bladder stimulator in place and is unsure that she wants to proceed with this type of treatment. She says that she will need to review the information before proceeding. Review of Systems General: No recent weight changes, no fever, no sleep disturbances Respiratory: No cough, no shortness of air, no recurring pulmonary infections Cardiovascular/peripheral vascular: No chest pain, no palpitations, no edema, no shortness of breath Gastrointestinal: No new onset incontinence, normal bowel movements reported Genitourinary: No new onset incontinence Musculoskeletal: Low back pain with radiation into bilateral buttock, legs and feet with numbness and tingling Psychiatric: [Normal mood/affect] Neurological: [Weakness bilateral lower extremities Objective:: Physical exam General: Alert and oriented x3, no acute distress, pleasant and cooperative Lungs: Respirations even and unlabored, symmetrical chest expansion Eyes: PERRL Musculoskeletal: Flexion and extension of lumbar [spine] somewhat guarded secondary to pain, [antalgic gait noted] Neurological: Speech clear, no gross sensory deficit Assessment:: Sacroiliitis bilateral, low back pain, degenerative disc disease lumbar spine with lumbar radiculopathy symptoms Plan:: Patient has decided to postpone the corner lock procedure. After further discussion with Dr. Ohara, neurosurgery, he does not feel the patient is a good candidate for the SI stabilization procedure at this time. She did have an updated MRI of her lumbar spine which demonstrated worsening for foraminal narrowing as well as bulging disks. After discussion with Dr. Ohara he does feel the patient will be more appropriate for possible intrathecal therapy versus spinal cord stimulation. Patient does have a bladder stimulator. Patient's bladder stimulator was implanted by Dr. Hutchins. We would need to discuss clearance from his standpoint before proceeding with any further implanted devices. Patient would like to review the information before proceeding. She will review the information and contact the clinic after she decides the route she wishes to take regarding her care. Patient has been instructed to contact the clinic with any concerns before the next appointment. Dr. Rainey has reviewed this note and agrees with this plan of care. This note was dictated using voice recognition software and make contain errors or omissions. [facility] History I have reviewed the patient's past medical history: Yes Medical History: Reports:: Gastroesophageal Reflux Disease(GERD), Hyperlipidemia, Ulcer Denies:: Cancer, Diabetes Mellitus Type 1, Diabetes Mellitus Type 2, Internal Pacemaker, MRSA, Seizures *Have you ever received a pneumonia vaccine?: No *Have you received a flu vaccine this season?: No Other Medical Histor
== END ==
PROVIDERS: Visit Provider Clinical Nurse Specialist Family Health
DX: M46.1 Sacroiliitis, not elsewhere classified (principal); M51.16 Intervertebral disc disorders with radiculopathy, lumbar region
CPT/HCPCS: 99212; G0463

== ENCOUNTER → 2021-03-06 09:34 | Outpatient (CLI) | payer OTHER, SELFPAY ==
[2021-03-06 09:39] LABS: Microscopic, Urine URINE MICROSCOPIC (MICROSCOPIC)
[2021-03-06 10:09] LABS: Basophils # 0.1 K/mm3 (0-0.2); Basophils % 1.3 % (0.1-2.0); Eosinophils # 0.2 K/mm3 (0.0-0.4); Hematocrit 40.4 % (37.0-47.0); Hemoglobin 13.3 g/dL (12.2-16.2); Lymphocytes # 1.9 K/mm3 (0.7-4.5); Lymphocytes % 26.2 % (10-50); Mean Corpuscular Hemoglobin 31.5 pg (27.0-31.2); Mean Corpuscular Volume 95.4 fl (81-99); Monocytes # 0.3 K/mm3 (0.1-1.0); Monocytes % 4.7 % (1.7-9.3); Neutrophils # 4.7 K/mm3 (1.8-7.8); Neutrophils % 64.9 % (37.0-80.0); Platelet Count 345 K/mm3 (142-424); Red Blood Count 4.23 M/mm3 (4.20-5.40); Red Cell Distribution Width 12.5 % (11.5-17.5); White Blood Count 7.3 K/mm3 (4.8-10.8)
[2021-03-06 10:11] LABS: Appearance,Urine CLEAR (Clear); Bilirubin,Urine Negative (Negative); Blood, Urine 1+ (Negative); Color,Urine YELLOW (Yellow); Glucose,Urine (UA) Negative (Negative); Ketones,Urine Negative (Negative); Leukocyte Esterase,Urine 2+ (Negative); Nitrate,Urine Negative (Negative); Protein,Urine Negative (Negative); Urobilinogen,Urine 0.2 EU/dl (0.2)
[2021-03-06 10:25] LABS: Bacteria,Urine 1+ /lpf
[2021-03-06 10:52] LABS: Anion Gap 14.3 mEq/L (5-15); Blood Urea Nitrogen 12 mg/dl (7-17); Calcium 9.6 mg/dl (8.4-10.2); Carbon Dioxide 27 mmol/L (22.0-30.0); Chloride 105 mmol/L (98-107); Estimated Glomerular Filt Rate 87 ml/min (>60); GFR (African American) 105 ML/MIN (>60); Glucose 143 mg/dl (74-100); Potassium 4.3 mmoL/L (3.5-5.1); Sodium 142 mmol/L (136-145)
== END ==
PROVIDERS: Visit Provider Orthopaedic Surgery
DX: Z01.812 Encounter for preprocedural laboratory examination (principal); Z11.52 Encounter for screening for COVID-19; M53.3 Sacrococcygeal disorders, not elsewhere classified; N39.0 Urinary tract infection, site not specified; B96.1 Klebsiella pneumoniae [K. pneumoniae] as the cause of diseases classified elsewhere
CPT/HCPCS: 36415; 80048; 81001; 85025; 87086; 87088; 87186; C9803; U0003; U0005

== ENCOUNTER → 2021-04-23 14:02 | Outpatient (CLI) | payer OTHER, SELFPAY ==
[2021-04-23 14:10] LABS: Microscopic, Urine URINE MICROSCOPIC (MICROSCOPIC)
[2021-04-23 14:30] LABS: Basophils # 0.3 K/mm3 (0-0.2); Basophils % 4.3 % (0.1-2.0); Eosinophils # 0.3 K/mm3 (0.0-0.4); Eosinophils % 3.9 % (0.1-12.0); Hematocrit 40.5 % (37.0-47.0); Hemoglobin 13.3 g/dL (12.2-16.2); Lymphocytes # 2.1 K/mm3 (0.7-4.5); Lymphocytes % 27.5 % (10-50); Mean Corpuscular HGB Conc 32.8 g/dL (31.8-35.4); Mean Corpuscular Hemoglobin 31.5 pg (27.0-31.2); Mean Platelet Volume 8.2 fl (7.4-10.4); Monocytes # 0.4 K/mm3 (0.1-1.0); Monocytes % 5.4 % (1.7-9.3); Neutrophils # 4.7 K/mm3 (1.8-7.8); Neutrophils % 63.1 % (37.0-80.0); Platelet Count 322 K/mm3 (142-424); Red Blood Count 4.22 M/mm3 (4.20-5.40); Red Cell Distribution Width 13.2 % (11.5-17.5); White Blood Count 7.5 K/mm3 (4.8-10.8)
[2021-04-23 14:40] LABS: Activated Partial Thrombo Time 26.8 seconds (22.8-30.6); INR 0.96 (0.9-1.1); Prothrombin Time 10.9 seconds (10.1-12.5)
[2021-04-23 15:16] LABS: Chloride 103 mmol/L (98-107)
[2021-04-23 15:17] LABS: Sodium 140 mmol/L (136-145)
[2021-04-23 15:19] LABS: Alanine Aminotransferase 35 U/L (12-78); Alkaline Phosphatase 97 U/L (38-126); Aspartate Amino Transferase 42 U/L (14-36); Bilirubin,Total 0.4 mg/dl (0.2-1.3); Blood Urea Nitrogen 13 mg/dl (7-17); Estimated Glomerular Filt Rate 74 ml/min (>60); GFR (African American) 90 ML/MIN (>60)
[2021-04-23 15:20] LABS: Albumin Level 4.4 g/dl (3.5-5.0); Albumin/Globulin Ratio 1.5 (1.1-1.8); Calcium 9.3 mg/dl (8.4-10.2); Carbon Dioxide 26 mmol/L (22.0-30.0); Glucose 87 mg/dl (74-100); Total Protein,Serum 7.4 g/dl (6.3-8.2)
[2021-04-23 15:25] LABS: Appearance,Urine CLEAR (Clear); Bilirubin,Urine Negative (Negative); Blood, Urine 1+ (Negative); Color,Urine YELLOW (Yellow); Glucose,Urine (UA) Negative (Negative); Ketones,Urine Negative (Negative); Leukocyte Esterase,Urine TRACE (Negative); Nitrate,Urine Negative (Negative); Protein,Urine Negative (Negative); Urobilinogen,Urine 0.2 EU/dl (0.2)
[2021-04-23 15:39] LABS: Bacteria,Urine 1+ /lpf
[2021-04-23 18:58] LABS: Thyroid Stimulating Hormone 1.76 uIU/mL (0.465-4.68)
[2021-04-25 08:14] LABS: Hep A Ab, IgM Negative (Negative); Hep A Ab, Total Negative (Negative); Hepatitis B Core Antibody IgM Negative (Negative); Hepatitis B Surf Ab Quant <3.1 mIU/mL (Immunity>9.9); Hepatitis B Surface Antigen Negative (Negative); Hepatitis C Antibody <0.1 s/co ratio (0.0-0.9)
== END ==
PROVIDERS: Orthopaedic Surgery; Visit Provider Internal Medicine Gastroenterology
DX: K58.8 Other irritable bowel syndrome (principal); Z20.822 Contact with and (suspected) exposure to COVID-19; M46.1 Sacroiliitis, not elsewhere classified
CPT/HCPCS: 36415; 80053; 80074; 81001; 84443; 85025; 85610; 85730; 86706; 86708; C9803; U0003; U0005

== ENCOUNTER → 2021-07-11 14:55 | Outpatient (CLI) | payer OTHER, SELFPAY ==
[2021-07-11 15:33] LABS: Basophils # 0.1 K/mm3 (0-0.2); Basophils % 1.5 % (0.1-2.0); Eosinophils # 0.3 K/mm3 (0.0-0.4); Eosinophils % 4.5 % (0.1-12.0); Hematocrit 41.1 % (37.0-47.0); Hemoglobin 13.4 g/dL (12.2-16.2); Lymphocytes # 1.6 K/mm3 (0.7-4.5); Lymphocytes % 23.6 % (10-50); Mean Corpuscular HGB Conc 32.7 g/dL (31.8-35.4); Mean Corpuscular Hemoglobin 31.8 pg (27.0-31.2); Mean Corpuscular Volume 97.1 fl (81-99); Mean Platelet Volume 8.1 fl (7.4-10.4); Monocytes # 0.3 K/mm3 (0.1-1.0); Monocytes % 4.8 % (1.7-9.3); Neutrophils # 4.5 K/mm3 (1.8-7.8); Neutrophils % 65.7 % (37.0-80.0); Platelet Count 317 K/mm3 (142-424); Red Blood Count 4.23 M/mm3 (4.20-5.40); White Blood Count 6.9 K/mm3 (4.8-10.8)
[2021-07-11 16:46] LABS: Uric Acid 5.4 mg/dl (2.5-6.2)
[2021-07-11 16:51] LABS: C-Reactive Protein 1.9 mg/L (0-4)
[2021-07-11 17:01] LABS: Erythrocyte Sedimentation Rate 21 mm/hr (0-30)
[2021-07-13 10:15] LABS: RA Latex Turbid. <10.0 IU/mL (<14.0)
[2021-07-16 00:16] LABS: Anti-Cyclic Citrullinated Pept 14 units (0-19)
[2021-07-16 13:48] LABS: Lyme B. burgdorferi PCR Blood Negative (Negative)
[2021-07-18 16:37] LABS: HLA-B27 Negative (.)
[2021-07-28 21:39] LABS: Antinuclear Antibodies, IFA Positive
== END ==
PROVIDERS: Visit Provider Physician Assistant Medical
DX: M25.59 Pain in other specified joint (principal)
CPT/HCPCS: 36415; 84550; 85025; 85651; 86038; 86140; 86200; 86431; 86812; 87476

== ENCOUNTER → 2021-10-02 15:25 | Outpatient (CLI) | payer OTHER, SELFPAY ==
--- NOTE | 2021-10-02 15:33 | MM_ITS ---
PROCEDURE INFORMATION: Exam: MG Bilateral Screening 3D Mammography Exam date and time: 10/02/2021 3:24 PM Age: 56 years old Clinical indication: Screening examination TECHNIQUE: Imaging protocol: Bilateral Screening tomosynthesis and 2D mammography including computer-aided detection (CAD) when performed. COMPARISON: 1. MG MM DIG SCREENING MAMM BI W/CAD 08/29/2020 8:30 AM 2. MG DIG MAMM-DX OMER 10/13/2018 2:06 PM 3. MG DXLT MM Dig mamm DX unilat LT CAD 03/11/2018 3:34 PM 4. MG SCBI MM Dig screening mamm BI w/CAD 10/07/2017 9:06 AM FINDINGS: MAMMOGRAPHY: Breast composition: The breast is heterogeneously dense, which may obscure small masses. Mass: None. Architectural distortion: No new or suspicious architectural distortion. Calcifications: No new or suspicious calcifications are present Asymmetric density: No new or suspicious asymmetric density is present Skin thickening: None. Axillary adenopathy: None. IMPRESSION: No mammographic evidence of malignancy. Recommend annual screening mammography unless otherwise clinically indicated. ASSESSMENT: BI-RADS category 1: Negative
== END ==
PROVIDERS: PCP Nurse Practitioner Family; Visit Provider Nurse Practitioner Family
DX: Z12.31 Encounter for screening mammogram for malignant neoplasm of breast (principal)
CPT/HCPCS: 77063; 77067

== ENCOUNTER 2021-10-15 18:59 | Emergency (ER) | payer OTHER, SELFPAY ==
[2021-10-15 19:05] VITALS: BP 145/93; PULSE 115; RESP 20; TEMP 37.2; O2SAT 97; BMI 25.7
--- NOTE | 2021-10-15 19:20 | HMH.EDUTC ---
[facility] [place] Clinical Impression: Viral upper respiratory infection Disposition: Home, Self-Care Condition on Discharge: Good Instructions: Sore Throat, DI for Fever (Symptom) -- Adult, DI for COVID-19 (Suspected or Confirmed ) Additional Instructions: *Monitor Temp, Over the counter Motrin or Tylenol as directed/as needed Tylenol every 4 hours and Motrin every 6 hours (as long as your family doctor has told you that you can take it) for fever or pain. and straight to ER if unable to lower temp less than 101.0 after medication given *Warm salt water gargles may help to soothe the throat *Throat Lozenges *Warm fluids like tea with honey may help to soothe the throat *Sleep elevated *Humidifier/Vaporizer Your throat swab was sent for culture. Those results are typically sent to your primary care. Be sure to follow up in 2-3 days with your family doctor/primary care physician if no improvement so they can review those result and treat if necessary. If you don?t have a primary care doctor, I recommend you get one but in the mean time, you will have to return to a walk in clinic Follow up IMMEDIATELY for new or worsening symptoms or no Noticeable improvement over the next 48-72 hours. 911 for difficulty breathing or swallowing You were tested for today for COVID19 your test result should be back in the next 24-48 hours, you may check your results on the [facility] My Health Portal Make sure to take your Vitamins Vit. C Vit D and Zinc if you can take them Referrals: Rosie Hector APRN [Primary Care Provider] - As needed Forms: Work/School Release Time of Disposition: 19:44 Medical Decision Making - Rich Inquiry Pt receiving controlled substance: No Rich was queried for this patient: No Vital Signs: 10/15/21 19:05 10/15/21 19:37 Temperature 99.0 F 99.0 F Temperature Source Oral Pulse Rate 115 H Pulse Rate [Right Brachial] 115 H Respiratory Rate 20 20 Blood Pressure 145/93 H Blood Pressure [Right Arm] 145/93 H Blood Pressure Mean [Right Arm] 110 Blood Pressure Source [Right Arm] Automatic Cuff Blood Pressure Position [Right Arm] Sitting 02 Sat by Pulse Oximetry 97 Oxygen Delivery Method Room Air - Lab Data Lab results reviewed: Yes: I reviewed the patient's lab results. Lab Results 10/15/21 19:10: Group A Strep Rapid Negative Orders (Tests/Meds): ORDERS Category Date Time Status Full Resp Panel w/COVID ([facility]) Routine Lab 10/15/21 19:29 Ordered Strep Screen Confirmation Stat Micro 10/15/21 19:10 [place] [facility] [place] - General Stated complaint: sore throat, fever, cough,LEONARDO [place] Time Seen by Provider: 10/15/21 19:20 Mode of Arrival: Ambulatory Source of Information: Patient Limitations: No Limitations Description of Symptoms (Recalled from Triage Doc. by RN): PATIENT C/O HEADACHE, SORE THROAT, FEVER, AND BODY ACHES SINCE YESTERDAY. SHE STATES HER GRANDSON HAD STREP LAST WEEK HEENT Symptoms (Recalled from RN notes): Yes Resp Symptoms (Recalled from RN notes): Yes Skin Symptoms (Recalled from RN notes): No MS Symptoms (Recalled from RN notes): No Functional Status (Recalled from RN notes): WNL - History of Present Illness Provider Complaint: Patient state that her grandson had strep throat last week State that she started feeling bad a couple days ago with headache, sore throat, fever, chills and body aches States that she has continued to feel worse and today she was still not feeling well so she came in to get checked out State that she feels like she may have the flu - Related Data Home Medications Medication Instructions Recorded Confirmed gabapentin 100 mg capsule 600 mg PO TID cap 09/29/17 02/11/21 eszopiclone 2 mg tablet 3 mg PO QHS 01/18/19 02/11/21 linaclotide 145 mcg capsule 145 mcg PO DAILY 01/18/19 02/11/21 omeprazole 40 mg capsule,delayed 40 mg PO DAILY 01/18/19 02/11/21 release Cyanocobalamin (Vitamin B-12) 3,000 mcg PO DAILY 02/11/21 [Vitamin B-12] Levoc
[2021-10-15 19:30] LABS: Strep Scrn Group A (Rapid) Negative (Negative)
[2021-10-15 19:37] VITALS: BP 145/93; PULSE 115; RESP 20; TEMP 37.2; O2SAT 97
[2021-10-15 19:56] LABS: Adenovirus,PCR Not Detected (NotDetected); Bordetella Pertussis Not Detected (NotDetected); Chlamydophila Pneumoniae, PCR Not Detected (NotDetected); Coronavirus 229E Not Detected (NotDetected); Coronavirus NL63 Not Detected (NotDetected); Coronavirus OC43 Not Detected (NotDetected); Coronovirus HKU1,PCR Not Detected (NotDetected); Human Metapneumovirus Not Detected (NotDetected); Influenza A, PCR Not Detected (NotDetected); Influenza AH1, 2009 Not Detected (NotDetected); Influenza AH1, PCR Not Detected (NotDetected); Influenza AH3,PCR Not Detected (NotDetected); Influenza B, PCR Not Detected (NotDetected); Mycoplasma Pneumoniae, PCR Not Detected (NotDetected); Parainfluenza 1, PCR Not Detected (NotDetected); Parainfluenza 2, PCR Not Detected (NotDetected); Parainfluenza 3, PCR Not Detected (NotDetected); Parainfluenza 4, PCR Not Detected (NotDetected); Respiratory Syncytial Virus Not Detected (NotDetected); Rhinovirus/Enterovirus Not Detected (NotDetected)
[2021-10-16 01:44] LABS: Coronavirus 19, PCR Detected (NotDetected)
== END 2021-10-15 19:50 | disposition home or self-care (01) ==
PROVIDERS: Emergency Provider Nurse Practitioner; PCP Nurse Practitioner Family
DX: J06.9 Acute upper respiratory infection, unspecified (principal); R07.0 Pain in throat; R50.81 Fever presenting with conditions classified elsewhere; R05.9 Cough, unspecified; R51.9 Headache, unspecified; M79.10 Myalgia, unspecified site; Z20.818 Contact with and (suspected) exposure to other bacterial communicable diseases
CPT/HCPCS: 87430; 87581; 87632; 87798; 99212; C9803; G0463; U0003; U0005

== ENCOUNTER → 2023-01-01 14:19 | Outpatient (CLI) | payer OTHER, SELFPAY | PROVIDERS: PCP Nurse Practitioner Family; Visit Provider Nurse Practitioner Family | DX: G47.33 Obstructive sleep apnea (adult) (pediatric) (principal); R06.83 Snoring; R40.0 Somnolence | CPT/HCPCS: G0399 ==

== ENCOUNTER 2023-05-13 11:34 | Outpatient (CLI) | payer OTHER, SELFPAY ==
[2023-05-13 12:45] LABS: Basophils # 0.1 K/mm3 (0-0.2); Basophils % 0.9 % (0.1-2.0); Eosinophils # 0.3 K/mm3 (0.0-0.4); Eosinophils % 3.4 % (0.1-12.0); Hematocrit 39.9 % (37.0-47.0); Hemoglobin 13.6 g/dL (12.2-16.2); Lymphocytes # 2.9 K/mm3 (0.7-4.5); Lymphocytes % 35.4 % (10-50); Mean Corpuscular Volume 91.1 fl (81-99); Mean Platelet Volume 8.2 fl (7.4-10.4); Monocytes # 0.5 K/mm3 (0.1-1.0); Monocytes % 6.5 % (1.7-9.3); Neutrophils # 4.4 K/mm3 (1.8-7.8); Neutrophils % 53.8 % (37.0-80.0); Platelet Count 273 K/mm3 (142-424); Red Blood Count 4.38 M/mm3 (4.20-5.40); White Blood Count 8.2 K/mm3 (4.8-10.8)
[2023-05-13 14:32] LABS: Iron 78 ug/dL (37-170)
[2023-05-13 14:42] LABS: Total Iron Binding Capacity 311 ug/dL (265-497)
[2023-05-13 15:09] LABS: Ferritin 15.9 ng/ml (11.1-264)
== END 2023-05-13 23:59 ==
LOC: LAB 11:35
PROVIDERS: PCP Nurse Practitioner Family; Visit Provider Nurse Practitioner Family
DX: G47.33 Obstructive sleep apnea (adult) (pediatric); I49.9 Cardiac arrhythmia, unspecified; R00.2 Palpitations; R94.31 Abnormal electrocardiogram [ECG] [EKG]; Z82.49 Family history of ischemic heart disease and other diseases of the circulatory system; D50.8 Other iron deficiency anemias
CPT/HCPCS: 36415; 82728; 83540; 83550; 85025; 93270

== ENCOUNTER 2023-06-03 12:49 | Outpatient (CLI) | payer OTHER, SELFPAY ==
--- NOTE | 2023-06-03 12:49 | CA_ITS ---
APPROVED REPORT EXAM: Comprehensive 2D, Doppler, and color-flow Echocardiogram Platform Material Handler Manager: Kristin Murphy, ELOISA, RVS Ht: 5 ft 4 in Wt: 165lbs BSA: 1.80 BP: 138/94 mmHg Indications: Abn EKG, Palpitations, Hx-Rheumatic fever, Shogrens/multiple autoimmune disorders 2D Dimensions Left Atrium 3.08 cm LA Volume 62.60 mL LA Volume Index 33.80 mL/m2 (M/F) 16-34 M-Mode Dimensions RVDd 1.58 cm (0.9-2.6) LA Diam 3.72 cm (1.9-4.0) LVDd 4.91 cm (3.5-5.7) LVDs 3.13 cm (3.5-5.7) IVSd 0.98 cm (0.6-1.1) PWd 1.11 cm (0.6-1.1) EF (Teich) 65.40% EPSs 0.61 cm FS 36.00% EDV (Teich) 112.30 mL ESV (Teich) 38.80 mL LV Diastology E Decel Time 210 (160-240 msec) E/A Ratio 1.00 MED A' 8.60 cm/s LAT A' 12.10 cm/s Aortic Valve CRISTY Index 1.21 cm2/m2 AoV Peak Mikal. 148.0 (50-130 cm/s) AO Peak GR. 8.80 mmHg AO Mean GR. 4.40 (<5 mmHg) AO VTI 30.4 (18-25 cm) CRISTY (VTI) 2.24 (2.5-4.5 cm2) Mitral Valve MV A Velocity 85.0 (40-130 cm/s) E/A Ratio 1.00 Pulmonary Valve IL End VMAX 149.0 cm/s Tricuspid Valve TR P. Velocity 187.00 cm/s RAP Estimate 10.00 mmHg RVSP 23.90 mmHg Left Ventricle The left ventricle is normal size. The left ventricle is normal size. The left ventricular systolic function is normal. The left ventricular ejection fraction is within the normal range. There is normal left ventricular wall thickness. There is normal LV segmental wall motion. The left ventricular diastolic function is normal. LVEF is 55%. Right Ventricle The right ventricle is normal size. The right ventricular systolic function is normal. Atria The left atrium size is normal. The right atrium size is normal. There is no Doppler evidence of interatrial shunt. Aortic Valve The aortic valve is normal in structure. The aortic valve is trileaflet. There is no aortic valvular stenosis. Trace aortic regurgitation. Mitral Valve The mitral valve is normal in structure. No evidence of mitral valve stenosis. Mild mitral regurgitation. Tricuspid Valve The tricuspid valve leaflets are thin and pliable. Mild tricuspid regurgitation. RVSP is normal. Pulmonic Valve The pulmonary valve is normal in structure. Trace pulmonic regurgitation. Great Vessels The aortic root is normal in size. The ascending aorta is normal in size. IVC is normal in size and collapses >50% with inspiration. Pericardium There is no pericardial effusion. Other Information Study Quality: Adequate Conclusion Normal biventricular systolic function. No significant valvular stenosis or regurgitation. Electronically signed by : Denise John MD 06/07/2023 14:58:11
--- NOTE | 2023-06-03 13:23 | MM_ITS ---
PROCEDURE INFORMATION: Exam: MG Bilateral Screening 3D Mammography Exam date and time: 06/03/2023 1:18 PM Age: 57 years old Clinical indication: Screening examination TECHNIQUE: Imaging protocol: Bilateral Screening tomosynthesis and 2D mammography including computer-aided detection (CAD) when performed. COMPARISON: 1. MG MM DIG SCREENING MAMM BI W/CAD 10/02/2021 3:24 PM 2. MG MM DIG SCREENING MAMM BI W/CAD 08/29/2020 8:30 AM FINDINGS: MAMMOGRAPHY: Breast composition: There are scattered areas of fibroglandular density. Mass: None. Architectural distortion: None. Calcifications: No suspicious calcifications. Asymmetric density: None. Skin thickening: None. Axillary adenopathy: None. IMPRESSION: No mammographic evidence of malignancy. Annual screening is recommended unless otherwise clinically indicated. ASSESSMENT: BI-RADS Category 1: Negative
== END 2023-06-03 23:59 ==
LOC: RT 12:49
PROVIDERS: PCP Nurse Practitioner Family; Visit Provider Physician Assistant
DX: R94.31 Abnormal electrocardiogram [ECG] [EKG] (principal); R00.2 Palpitations; I49.9 Cardiac arrhythmia, unspecified; G47.33 Obstructive sleep apnea (adult) (pediatric); Z82.49 Family history of ischemic heart disease and other diseases of the circulatory system; Z12.31 Encounter for screening mammogram for malignant neoplasm of breast
CPT/HCPCS: 77063; 77067; 93306

== ENCOUNTER 2023-07-20 06:28 | Outpatient (CLI) | payer OTHER, SELFPAY ==
--- NOTE | 2023-07-20 06:34 | NM_ITS ---
APPROVED REPORT Exam: Nuclear Stress Test Indication: Abnormal EKG, Chest pain, SOB, High cholesterol, Family history Patient Location: Outpatient Stress Tech: Fay Awad [place] Tech:Marisol Ward, ARRT, RT (R)(N) Ht: 5 ft 4 in Wt: 155 lbs Bra Size: 36C HR: 73 bpm BP: 132/91 mmHg BSA: 1.76 m2 TID: 1.17 BMI: 26.6 History: Abnormal EKG, Chest pain, SOB, High cholesterol, Family history Procedure: Patient received 0.4 mg of intravenous Lexiscan, resting heart rate 73 bpm, resting blood pressure 132/91 mmHg, with Lexiscan maximum heart rate achieved was 114 bpm which is % of the maximum predicted heart rate and blood pressure was 160/99 mmHg. With Lexiscan, patient denied any complaint of chest pain. Cardiac Stress and Resting SPECT Images: Cardiac Stress and Resting SPECT images were obtained using technetium 99m Myoview 31.1 mCi stress and 10.44 mCi at rest. Resting and stress imaging in supine and prone positions demonstrate a medium-sized, moderate, reversible perfusion defect in the basal to mid anterior LV wall. Gated imaging demonstrates normal global and regional LV systolic function. LVEF is calculated at 58%. Conclusion: Medium-sized, moderate, reversible perfusion defect in the basal to mid anterior LV wall. Findings are suggestive of partial reversible ischemia. Gated imaging demonstrates normal global and regional LV systolic function. LVEF is calculated at 58%. Electronically signed by : Denise John MD 07/21/2023 22:39:54
[2023-07-20] MEDS: SODIUM CHLORIDE 0.9% 10ML SYR (RAD ONLY) 10 ML IV ×2 (08:23)
[2023-07-20] MEDS: ISOTOPE MYOVIEW (PER STUDY) 1 DOSE IV (08:23)
[2023-07-20] MEDS: REGADENOSON 0.4MG/5ML SYRINGE 0.400000000000000022 MG IV (08:23)
--- NOTE | 2023-07-20 09:06 | CA_ITS ---
APPROVED REPORT Exam: Pharmacologic Technologist: Fay Franks, Ht: 5 ft 4 in Wt: 164 lbs BSA: 1.80 m2 HR: 76 bpm BP: 132/91 mmHg Rhythm: NSR Medical History Medications: Dexilant,,,,, MeLATONIN,,,,, Pregabalin,,,,, LUNESTA,,,,, RoSUVASTATIN,,,,, LiNZESS,,,,, Levocetrizine,,,,, OxYCODONE-ACETAMINOPHEN,,,,, PaROXETINE HCI,,,,, Stress Test Details Test: LEXISCAN Reason for pharmacologic stress test: physical limitation. HR Resting HR: 73 bpm Max Heart Rate (APMHR): 163 bpm Max HR Achieved: 114 bpm Target HR (85% APMHR): 139 bpm % of APMHR: 70 Recovery HR: 89 bpm BP Resting BP: 132.0/91.0 mmHg Max BP: 160.0/99.0 mmHg Recovery BP: 144.0/98.0 mmHg ECG Resting ECG: NSR Stress ECG: No significant ST changes Arrhythmia: None Clinical Exercise duration: 04:00 min Highest Stage Achieved: Exercise capacity: 1.0 METs Stress ECG Conclusion Stress 1 Min: chest thightness, heartburn, headache 2 Min: improving symptoms 3 Min: heart burn/nausea persists with pain in back Recovery 1 Min: Symptoms improving 2 Min: Symptoms resolved Symptoms: (+) Arrhythmias/Ectopy: None ST-T Changes: No significant ST changes Conclusion: Unremarkable Lexiscan stress test. Myoview images are reported separately. Test Summary REST . . . . . . . Resting REST 06:41 . . 73 . 132/ 91 . . Stage 1 01:00 . . 112 . . . . Stage 2 01:00 . . 103 . 160/ 99 . . Stage 3 01:00 . . 93 . 149/ 99 . . Stage 4 01:00 . . 92 . 158/100 . Stop exercise at 04:00 RECOVERY 01:00 . . 85 . . . . RECOVERY 02:00 . . 86 . 144/ 98 . . RECOVERY 02:01 . . 86 . 144/ 98 . . Electronically signed by : Denise John MD 07/21/2023 22:35:41
== END 2023-07-20 23:59 ==
LOC: RAD 06:29
PROVIDERS: PCP Nurse Practitioner Family; Visit Provider Physician Assistant
DX: R07.89 Other chest pain (principal); R00.2 Palpitations; I49.8 Other specified cardiac arrhythmias; R94.31 Abnormal electrocardiogram [ECG] [EKG]; G47.33 Obstructive sleep apnea (adult) (pediatric); Z82.49 Family history of ischemic heart disease and other diseases of the circulatory system
CPT/HCPCS: 78452; 93017; 93018; A9502; J2785

== ENCOUNTER 2023-07-24 11:19 | Day surgery (SDC) | payer OTHER, SELFPAY ==
[2023-07-24] VITALS (13 sets, daily range): BP systolic 97–132; BP diastolic 68–100; PULSE 72–96; RESP 12–19; TEMP 36.6; O2SAT 90–98; BMI 28.1
--- NOTE | 2023-07-24 07:07 | IR_ITS ---
APPROVED REPORT Patient Location: Outpatient PROCEDURES Left heart catheterization Left ventriculogram Selective coronary angiography INDICATION Abnormal Myoview, Angina pectoris, Risk factors for coronary disease, Informed consent was obtained prior to the procedure. COMPLICATIONS NONE Estimated Blood Loss: LESS THAN 10 ML TECHNIQUE One percent lidocaine used to anesthetize the right anterior aspect of the wrist. The right radial artery was accessed via the Seldinger technique. A 6 Kinyarwanda sheath was placed in the right radial artery. 2.5 mg of Verapamil, 800 mcg of nitroglycerin, 1mg Lidocaine and 5000 U Heparin were given through the arterial sheath. The papa catheter was also used to perform left heart catheterization, left ventriculogram and selective coronary angiogram. At the end of the procedure the sheath was removed good hemostasis was achieved using Traclet band, patient was transferred to the postop holding area in stable condition. ANGIOGRAPHIC RESULTS The left main artery Normal The left anterior descending artery Has proximal 20 to 30% stenosis with mid vessel 20 and 30% stenoses The circumflex artery Nondominant with a proximal 20% stenosis and an eccentric 30 to 40% stenosis between the large first obtuse marginal artery and a medium sized second obtuse marginal artery The right coronary artery Is dominant and has proximal and mid vessel 30% stenoses The LINDER ventriculogram reveals Normal 65% The left ventricular end-diastolic pressure 10 mmHg IMPRESSION Mild to moderate proximal and mid vessel LAD disease Moderate stenosis in a nondominant circumflex artery between the first and second obtuse marginal artery Mild to moderate right coronary disease Normal ejection fraction Normal left ventricular end-diastolic pressure PLAN 1. Aggressive risk factor modification with medical management Electronically signed by : Cayetano Telles MD 07/24/2023 12:34:16
[2023-07-24 11:44] LABS: Basophils # 0.1 K/mm3 (0-0.2); Basophils % 1.3 % (0.1-2.0); Eosinophils # 0.4 K/mm3 (0.0-0.4); Eosinophils % 4.7 % (0.1-12.0); Hematocrit 38.9 % (37.0-47.0); Hemoglobin 13.4 g/dL (12.2-16.2); Lymphocytes # 2.5 K/mm3 (0.7-4.5); Lymphocytes % 34.2 % (10-50); Mean Corpuscular HGB Conc 34.5 g/dL (31.8-35.4); Mean Corpuscular Volume 92.8 fl (81-99); Mean Platelet Volume 8.1 fl (7.4-10.4); Monocytes # 0.4 K/mm3 (0.1-1.0); Monocytes % 5.3 % (1.7-9.3); Neutrophils % 54.5 % (37.0-80.0); Platelet Count 312 K/mm3 (142-424); Red Blood Count 4.19 M/mm3 (4.20-5.40); White Blood Count 7.4 K/mm3 (4.8-10.8)
[2023-07-24 11:49] LABS: Chloride 108 mmol/L (98-107); Sodium 141 mmol/L (136-145)
[2023-07-24 11:50] LABS: Potassium 3.6 mmoL/L (3.5-5.1)
[2023-07-24 11:53] LABS: Anion Gap 10.6 mEq/L (5-15); Blood Urea Nitrogen 13 mg/dl (7-17); Calcium 9.4 mg/dl (8.4-10.2); Carbon Dioxide 26 mmol/L (22.0-30.0); Creatinine Clearance Estimated 91 mL/min (50-200); Estimated Glomerular Filt Rate 74 ml/min (>60); GFR (African American) 89 ML/MIN (>60); Glucose 89 mg/dl (74-100)
[2023-07-24] MEDS: NITROGLYCERIN 800MCG/8ML SYR (CATH LAB) 800 MCG IA (12:21)
[2023-07-24] MEDS: diphenhydrAMINE 50MG/ML VIAL 50 MG IV (12:21)
[2023-07-24] MEDS: 0.9 % SODIUM CHLORIDE 500 ML 25 ML IV (12:21)
[2023-07-24] MEDS: HEPARIN 1,000 UNITS/ML 10ML VIAL (CATH LAB) 10000 UNIT IV (12:21)
[2023-07-24] MEDS: LIDOCAINE 1% 10ML MDV 20 ML IJ (12:21)
[2023-07-24] MEDS: HEPARIN 1,000 UNITS/500ML NS (CATH LAB) 3000 UNIT IV (12:21)
[2023-07-24] MEDS: VERAPAMIL 2.5MG/ML 2ML VIAL 2.5 MG IV (12:21)
[2023-07-24] MEDS: FENTANYL 100MCG/2ML VIAL 50 MCG IV (12:23)
[2023-07-24] MEDS: PROMETHAZINE HCL 25MG/ML 1ML VIAL 25 MG IV (12:23)
[2023-07-24] MEDS: MIDAZOLAM HCL 1MG/1ML 5ML VIAL 1 MG IV (12:23)
[2023-07-24] MEDS: IOPAMIDOL-370 (76%);100ML BOTTLE 50 ML IV (14:15)
== END 2023-07-24 15:43 | disposition home or self-care (01) ==
PROVIDERS: PCP Nurse Practitioner Family; Visit Provider Internal Medicine
DX: I25.118 Atherosclerotic heart disease of native coronary artery with other forms of angina pectoris (principal); G47.33 Obstructive sleep apnea (adult) (pediatric); I49.9 Cardiac arrhythmia, unspecified; Z82.49 Family history of ischemic heart disease and other diseases of the circulatory system; R94.31 Abnormal electrocardiogram [ECG] [EKG]; Z79.899 Other long term (current) drug therapy
CPT/HCPCS: 80048; 85025; 93458; 99152; C1725; C1769; J1644; Q9967

== ENCOUNTER 2023-08-06 10:32 | Outpatient (CLI) | payer OTHER, SELFPAY ==
[2023-08-06 12:05] LABS: Alanine Aminotransferase 44 U/L (12-78); Albumin Level 4.6 g/dl (3.5-5.0); Alkaline Phosphatase 83 U/L (38-126); Aspartate Amino Transferase 49 U/L (14-36); Bilirubin,Direct 0.1 mg/dl (0.0-0.4); Bilirubin,Indirect 0.3 mg/dL (0.0-0.9); Bilirubin,Total 0.4 mg/dl (0.2-1.3); Bilirubin,Unconjugated 0.3 mg/dL (0.0-1.1); Chol/HDL Ratio 4.5 (1-3.5); Cholesterol 189 mg/dl (140-200); HDL Cholesterol 42 mg/dl (40-60); Total Protein,Serum 7.8 g/dl (6.3-8.2); Triglycerides 132 mg/dl (30-150); VLDL Cholesterol 26 mg/dL (0-40)
[2023-08-06 12:16] LABS: Direct LDL Cholesterol 99.96 mg/dL (100-129)
[2023-08-06 12:23] LABS: Free T4 (Free Thyroxine) 0.67 ng/dl (0.78-2.19)
[2023-08-06 12:35] LABS: Thyroid Stimulating Hormone 1.96 uIU/mL (0.465-4.68)
== END 2023-08-06 23:59 | disposition home or self-care (01) ==
LOC: LAB 10:32
PROVIDERS: PCP Nurse Practitioner Family; Visit Provider Physician Assistant
DX: R06.00 Dyspnea, unspecified (principal); I11.9 Hypertensive heart disease without heart failure; R00.2 Palpitations; I25.118 Atherosclerotic heart disease of native coronary artery with other forms of angina pectoris; R94.31 Abnormal electrocardiogram [ECG] [EKG]; Z82.49 Family history of ischemic heart disease and other diseases of the circulatory system; G47.33 Obstructive sleep apnea (adult) (pediatric); I49.8 Other specified cardiac arrhythmias; Z79.899 Other long term (current) drug therapy
CPT/HCPCS: 36415; 80061; 80076; 84439; 84443